=== PATIENT | male | born 1995 | race Caucasian/White ===

== ENCOUNTER 2017-01-01 23:20 | Emergency (ER) | payer OTHER ==
[~2017-01-01] VITALS: Ht 180.3 cm; Wt 92.0 kg
[2017-01-01 23:34] VITALS: TEMP 37; Ht 180.3 cm; Wt 92.0 kg
[2017-01-01] MEDS ORDERED: METRONIDAZOLE 250 MG TAB PO STA (23:59)
[2017-01-02] MEDS ORDERED: SEPTRA DS HOME PACK 1 EA VIAL PO ONE
[2017-01-02] MEDS ORDERED: ONDANSETRON HOME PACK 4MG OD TAB PO ONE
[2017-01-02] MEDS ORDERED: NORCO 5/325MG HOME PACK PO ONE
[2017-01-02] MEDS ORDERED: METR-162 PO ×2 (00:02→00:43)
[2017-01-02] MEDS ORDERED: SULF800T23 PO ×2 (00:02→00:43)
[2017-01-02 00:20] VITALS: BP 108/65; PULSE 76; O2SAT 96
--- NOTE | 2017-01-02 00:58 | EMERGENCY ROOM VISIT NOTE ---
History First contact with patient: 23:44 Chief Complaint: BACK PAIN Stated Complaint: HURT AND SWOLLEN COCCYX, NO NON TRAUMA History of Present Illness The patient is a 21 year old male who presents to the Emergency Room with complaints of pain and swelling to the top of his tailbone. The patient does not have an injury or trauma to explain his symptoms. He started noticing his discomfort about 2 days ago. He is not had fever or chills. No drainage or discharge. When he lays or sits he has worsening discomfort. He considers it usually healthy and is not diabetic. He does not have a history of inflammatory bowel disease. He rates his discomfort a 7/10. Review of Systems More than 10 systems were reviewed and otherwise negative with the exception of history of present illness. Past Medical/Surgical History Medical Problems: (1) Psoriasis Family History Heart disease Hypertension Social History Smoking Status: Never Smoker Marital Status: single Occupation Status: employed, student Current/Historical Medications Scheduled Metronidazole (Flagyl), 500 MG PO TID Sulfa/Trimethoprim (Bactrim Ds 800MG/160MG), 1 TAB PO BID Allergies Coded Allergies: No Known Allergies (Unverified , NONE, 01/20/11) Physical Exam Vital Signs Date Time Temp Pulse Resp B/P (MAP) Pulse Ox O2 Delivery O2 Flow Rate FiO2 01/02/17 00:20 76 20 108/65 96 Room Air 01/01/17 23:34 37.0 89 19 116/70 99 Room Air Pain Rating (0-10): 5.0 Physical Exam VITALS: Vitals are noted on the nurse's note and reviewed by myself. Vital signs stable. GENERAL: Well-developed, well-nourished, white male, who is in no acute distress and resting comfortably. Patient is cooperative with the examination. HEAD: Normocephalic atraumatic. HEART: Regular rate and rhythm without murmurs gallops or rubs. LUNGS: Clear to auscultation bilaterally without wheezes, rales or rhonchi. No retractions or accessory muscle use. SKIN: The skin was with erythema and induration along the superior aspect of the gluteal fold. Anatomically this is in the region of a possible pilonidal abscess, however there is no fluctuance or discharge. This area is tender, and measures approximately 3 cm x 2 cm in dimension. Medical Decision & Procedures Medications Administered Medications (Trade) Dose Ordered Sig/Jessica Route Start Time Stop Time Status Last Admin Dose Admin Trimethoprim/ Sulfamethoxazole (Sulfameth/ Trimeth Ds 800/ 160MG Home Pack) 1 homepack UD ONCE PO 01/02/17 00:00 01/02/17 00:01 DC 01/02/17 00:25 1 HOMEPACK Metronidazole (Flagyl Tab) 500 mg NOW STAT PO 01/01/17 23:59 01/02/17 00:00 DC 01/02/17 00:25 500 MG Acetaminophen/ Hydrocodone Bitart ([place] 5/325mg Home Pack) 1 homepack UD ONCE PO 01/02/17 00:00 01/02/17 00:01 DC 01/02/17 00:25 1 HOMEPACK Ondansetron HCl (ZOFRAN ODT 4MG Home Pack) 1 homepack UD ONCE PO 01/02/17 00:00 01/02/17 00:01 DC 01/02/17 00:25 1 HOMEPACK ED Course Physical exam and history were performed. Nursing notes and EMR were reviewed. Patient appears to have a very early pilonidal infection. There is no appreciable fluctuance for drainage at this time. I discussed options of care with the patient, and will start him on oral antibiotics. The patient will need to have very close follow-up over the next 2-3 days as his symptoms could blossom and require incision and drainage. The patient will be given a home pack of Vicodin and Zofran for comfort. He was invited back to the ER if he was not able to be seen by his primary care physician. He is to return sooner with any new, worsening, or concerning symptoms. He voiced understanding and rated his discomfort a 5/10 at the time of departure. The chart was completed utilizing [employer] Voice Recognition Software. Grammatical errors, random word insertions, pronoun errors, and incomplete sentences are an occasional consequence of this system due to software limitations, ambient noise, and hardware issues. Any formal questions or concerns about the content, text, or information contained within the body of this dictation should be directly addressed to the provider for clarification. . Medical Decision Differential diagnosis: Etiologies such as cellulitis, abscess, MRSA infection, DVT, necrotizing fasciitis, dermatitis, drug eruption, as well as others were entertained.. Impression Primary Impression: Infected pilonidal cyst Departure Information Dispostion Home / Self-Care Condition GOOD Prescriptions Metronidazole (FLAGYL) 500 Mg Tab 500 MG PO TID for 14 Days, #42 TAB Initial tx. Avoid alcohol. Prov: Reddy Her PA-C 01/02/17 Sulfa/Trimethoprim (Bactrim Ds 800MG/160MG) Tab 1 TAB PO BID for 14 Days, #28 TAB Initial Prov: Reddy Her PA-C 01/02/17 Referrals No Doctor, Assigned Forms HOME CARE DOCUMENTATION FORM, IMPORTANT VISIT INFORMATION Patient Instructions My [facility] Additional Instructions You were seen and evaluated today on an emergency basis only. This is not a substitute for, or an effort to provide, complete comprehensive medical care. It is not possible to recognize and treat all injuries or illnesses in a single emergency department visit. For this reason it is recommended that you followup with your primary care physician or back in the emergency department in 2-3 days for recheck of your condition. Trimethoprim-Sulfamethoxazole(Bactrim DS): Take one pill twice daily for 14 days for your skin infection. All antibiotics can cause diarrhea. If this occurs and you feel worse or it does not resolve in 1-2 days follow up with your doctor or return to the Emergency Department as this could be signs of serious underlying problems. Any medication can cause an allergic reaction, stop the pills immediately and return to the ER for rash, hives, breathing difficulties, or swelling. Metronidazole(Flagyl) 500mg: Take one pill three times daily for 14 days for your infection. DO NOT drink alcohol or take alcohol containing products with this medication. Any medication can cause an allergic reaction, stop the pills immediately and return to the ER for rash, hives, breathing difficulties, or swelling. [place] (hydrocodone/acetaminophen) 5/325 mg (homepack) every 6 hours as needed for worsening breakthrough pain. Do not drink or drive on [place]. This medication will likely make you tired. Do not take [place] and Tylenol at the same time as both contain acetaminophen. [place] may cause constipation. You may wish to take an [id number] stool softener like Colace if this occurs. Zofran 1 tablet every 6 hrs as needed for nausea. You are welcome to return to the emergency department anytime with new, worsening, or concerning symptoms.
== END 2017-01-02 00:25 | disposition home or self-care (01) ==
LOC: C.EDB 23:21
DX: L05.91 Pilonidal cyst without abscess (principal); Z82.49 Family history of ischemic heart disease and other diseases of the circulatory system